=== PATIENT | male | born 2005 | race Two or more races ===

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

== ENCOUNTER 2024-03-24 21:10 | Emergency (ER) | payer MEDICAID, SELFPAY ==
--- NOTE | 2024-03-24 21:13 | XRR_ITS ---
PROCEDURE INFORMATION: Exam: XR Chest Exam date and time: 03/24/2024 9:25 PM Age: 18 years old Clinical indication: Pain; Chest pressure; Additional info: Cp TECHNIQUE: Imaging protocol: Radiologic exam of the chest. Views: 1 view. COMPARISON: CR XR chest 1V portable [id number] 10/06/2023 7:35 PM FINDINGS: Lungs: Unremarkable. No consolidation. Pleural spaces: Unremarkable. No pleural effusion. No pneumothorax. Heart/Mediastinum: Unremarkable. No cardiomegaly. Bones/joints: Unremarkable. XR/XR chest 1V portable [id number] IMPRESSION: No acute findings.
--- NOTE | 2024-03-24 21:13 | ECG_ITS ---
[facility] Test Date: 2024-03-24 Pat Name: Loco Martinez Department: Room: Gender: Male Center Rep: : 2005 Requested By: Roxie Nair Order Number: [id number] Son MD: Geronimo Parisi M.D. Measurements Intervals [place] Rate: 94 P: 27 GA: 122 QRS: 66 QRSD: 86 T: -44 QT: 313 QTc: 391 Interpretive Statements SINUS RHYTHM MODERATE T-WAVE ABNORMALITY, CONSIDER INFERIOR ISCHEMIA [-0.1+ mV T-WAVE IN II/aVF] Compared to ECG 10/06/2023 16:59:45 Possible ischemia now present T-wave abnormality still present Electronically Signed On 03-28-2024 13:20:55 CDT by Geronimo Parisi M.D. [id number]
[2024-03-24 21:20] VITALS: BP 123/75; PULSE 95; RESP 16; TEMP 36.6; O2SAT 96
[2024-03-24 22:35] VITALS: BP 130/100; PULSE 87; RESP 20; O2SAT 94
--- NOTE | 2024-03-24 22:42 | ED_ITS ---
HPI - SOB/Dyspnea 2 General: Chief Complaint: Shortness of Breath/Dyspnea Stated Complaint: sharp pain through chest when breating in Time Seen by Provider: 03/24/24 22:29 History of Present Illness: HPI Narrative: Patient presents to the ER with complaints of pain in his chest that shoots from his back to his front when he takes a big deep breath or coughs. Patient states this started 2 days ago. Patient also notices this pain when he twists in certain areas of his back or moves in certain directions. Patient says he is that was diagnosed with a URI about a month ago and is just not got a whole lot better. Patient does state that he vapes a lot and has a chronic cough because of this. Review of Systems 2 General: Reports: 10 or more systems reviewed and unremarkable except in HPI and below Physical Exam 2 Const: COMMON NORMALS: no acute distress, average body habitus, patient oriented x3, no limitations, healthy appearing, alert and well nourished HENMT: COMMON NORMALS: normocephalic, atraumatic, hearing grossly normal bilaterally, external ears normal, Normal external nose present and moist oral mucous membranes HEAD & SCALP: normocephalic and atraumatic NOSE: Normal external nose present EXTERNAL EAR: Yes external ears normal Neck/C-Spine: COMMON NORMALS: full ROM, no lymphadenopathy, supple, no meningeal signs, no JVD and Thyroid normal THYROID: Thyroid normal Chest: COMMONS NORMALS: normal inspection of the chest and normal palpation of entire chest wall Resp: COMMON NORMALS: normal respiratory effort, No retractions, No use of accessory muscles and clear to auscultation bilaterally AUSCULTATION: clear to auscultation bilaterally Cardio: COMMON NORMALS: no JVD, regular rate, regular rhythm, S1 normal heart sound present, S2 normal heart sound present, No gallops present (Cardio), No clicks present (Cardio), No murmurs present (Cardio) and No rub (Cardio) R ATE: regular rate RHYTHM: regular rhythm HEART SOUNDS: S1 normal heart sound present and S2 normal heart sound present GI: COMMON NORMALS: Normal to inspection, nondistended, normoactive bowel sounds present, Soft to palpation, non-tender, No hepatosplenomegaly present and no masses PALPATION: Yes Soft to palpation and Yes No hepatosplenomegaly present Neuro: COMMON NORMALS: patient oriented x3 SENSORIUM/ORIENTATION: Yes alert MENINGEAL SIGNS: Yes no meningeal signs Course 2 Vital Signs: Vital signs: Vital Signs Temperature 97.9 F 03/24/24 21:20 Pulse Rate 87 03/24/24 22:35 Respiratory Rate 20 H 03/24/24 22:35 Blood Pressure 130/100 03/24/24 22:35 Pulse Oximetry 94 03/24/24 22:35 Oxygen Delivery Me thod Room Air 03/24/24 22:35 MDM - SOB/Dyspnea Medical Decision Making Chest x-ray showed no acute findings, CBC CMP CRP were normal, EKG showed no acute changes. Since patient is a frequent cough or from back pain and disc had a URI it is thought that his chest pain when he takes a big deep breath is more pleuritic in nature. Therefore we will put him on prednisone and Tessalon Perles and refer him back to his PCP. Differential Diagnosis Unlikely acute exacerbation of chronic obstructive airways disease, congestive heart failure, community acquired pneumonia, asthma with exacerbation or pulmonary embolism Medical Records I reviewed the patient's medical records. Lab Data I reviewed the patient's lab results. 03/24/24 22:26 03/24/24 22:26 Labs/Radiology: Radiology Impressions Chest X-Ray 03/24/24 21:13 IMPRESSION: No acute findings. Laboratory Results WBC 8.71 10^3/uL (4.5-13.0) 03/24/24 22:26 RBC 5.77 10^6/uL (3.85-5.65) H 03/24/24 22:26 Hgb 16.40 g/dL (13.2-15.6) H 03/24/24 22:26 Hct 47.7 % (37-53) 03/24/24 22:26 MCV 82.7 fl (82-101) 03/24/24 22:26 MCH 28.4 pg (27-33) 03/24/24 22: MCHC 34.4 g/dL (30-55) 03/24/24 22:26 RDW 13.1 % (12.1-15.1) 03/24/24 22:26 Plt Count 260 10^3/cmm (157-399) 03/24/24 22:26 MPV 9.7 fL (7.4-10.4) 03/24/24 22:26 Neut % (Auto) 68.0 % 03/24/24 22: Lymph % (Auto) 21.0 % 03/24/24 22:26 Citrus % (Auto) 6.7 % 03/24/24 22: Eos % (Auto) 2.4 % 03/24/24 22: Baso % (Auto) 0.8 % 03/24/24 22: Neut # (Auto) 5.92 10^3/uL (1.8-8.0) 03/24/24 22: Lymph # (Auto) 1.8 10^3/uL (1.5-6.5) 03/24/24 22: Citrus # (Auto) 0.6 10^3/uL (0.2-0.9) 03/24/24 22: Eos # (Auto) 0.2 10^3/uL (0.0-0.8) 03/24/24 22: Baso # (Auto) 0.1 10^3/uL (0.0-0.1) 03/24/24 22:26 Nucleated RBC % (auto) 0 % 03/24/24 22: Nucleated RBCs # 0.0 /100WBC 03/24/24 22:26 Sodium 139 mmol/L (136-145) 03/24/24 22:26 Chloride 100 mmol/L (98-107) 03/24/24 22: Carbon Dioxide 26 mmol/L (22-29) 03/24/24 22:26 BUN 14 mg/dL (6-20) 03/24/24 22:26 Creatinine 0.7 mg/dL (0.7-1.2) 03/24/24 22:26 Glucose 88 mg/dL (65-115) 03/24/24 22:26 Calculated Osmolality 288 mOsm/kg (285-295) 03/24/24 22:26 Calcium 9.1 mg/dL (8.5-10.5) 03/24/24 22: Total Bilirubin 0.3 mg/dL (0.15-1.2) 03/24/24 22:26 Alkaline Phosphatase 118 U/L (40-130) 03/24/24 22:26 Total Protein 7.5 g/dL (6.6-8.7) 03/24/24 22:26 Albumin 4.5 g/dL (3.5-5.2) 03/24/24 22:26 Globulin 3.0 g/dL (1.3-4.6) 03/24/24 22:26 All radiology interpretation(s) finalized by discharge Discharge Plan Discharge Patient Disposition: Home Clinical Impression: Pleuritic chest pain Cough Qualifiers: Cough type: unspecified Qualified Code(s): R05.9 - Cough, unspecified Condition: Stable Prescriptions: New benzonatate 100 mg capsule 100 mg PO TID PRN (Reason: cough) Qty: 30 0RF prednisone 50 mg tablet 50 mg PO DAILY Qty: 5 0RF No Action Naprosyn 500 mg tablet 500 mg PO BID PRN (Reason: pain) Qty: 20 0RF Discharge Orders: Discharge ED (Routine); Ordered 03/24/24 Ordered By: Reed Johansen Patient Instructions: Pleurisy (ED) Activity Restrictions/Additional Instructions: Your chest x-ray, EKG and blood work all was unremarkable except for mildly elevated liver enzymes. Since your chest pain is worse with breathing and coughing it is thought to be more pleuritic in nature. This is due to an irritation of the lungs. You have been prescribed a cough medicine and a steroid that should help with this. Please follow-up with your family practitioner in the next 7 days for further evaluation and treatment and recheck of your liver enzymes. Coding Level of Care Code ED Head Operator Sulfide for Kennedy Rivero
[2024-03-24 22:46] LABS: Basophils # 0.1 10^3/uL (0.0-0.1); Basophils % 0.8 %; Eosinophils # 0.2 10^3/uL (0.0-0.8); Eosinophils % 2.4 %; Hematocrit 47.7 % (37-53); Lymphocytes # 1.8 10^3/uL (1.5-6.5); Mean Corpuscular HGB Conc 34.4 g/dL (30-55); Mean Corpuscular Hemoglobin 28.4 pg (27-33); Mean Corpuscular Volume 82.7 fl (82-101); Mean Platelet Volume 9.7 fL (7.4-10.4); Monocytes # 0.6 10^3/uL (0.2-0.9); Monocytes % 6.7 %; Neutrophils # 5.92 10^3/uL (1.8-8.0); Nucleated Red Blood Cells % 0 %; Platelet Count 260 10^3/cmm (157-399); Red Blood Count 5.77 10^6/uL (3.85-5.65); Red Cell Distribution Width 13.1 % (12.1-15.1); White Blood Count 8.71 10^3/uL (4.5-13.0)
[2024-03-24 23:21] LABS: Albumin Level 4.5 g/dL (3.5-5.2); Alkaline Phosphatase 118 U/L (40-130); Blood Urea Nitrogen 14 mg/dL (6-20); Calcium 9.1 mg/dL (8.5-10.5); Carbon Dioxide 26 mmol/L (22-29); Chloride 100 mmol/L (98-107); Creatinine Clr Calc Pharmacy 161.5974; Glomerular Filtration Rate 145.3 mL/min (90-130); Glucose 88 mg/dL (65-115); Osmolality Calculated 288 mOsm/kg (285-295); Sodium 139 mmol/L (136-145); Total Bilirubin 0.3 mg/dL (0.15-1.2); Total Protein 7.5 g/dL (6.6-8.7)
[2024-03-24 23:25] LABS: Alanine Aminotransferase 115 U/L (0-41); Anion Gap 17.4 (5-19); Aspartate Amino Transferase 57 U/L (0-40); Potassium 4.4 mmol/L (3.5-5.1)
[2024-03-24] MEDS: predniSONE 20 mg Tablet 40 MG PO (23:40)
[2024-03-24] MEDS: benzonatate 100 mg Capsule PO (23:40)
[2024-03-24 23:51] VITALS: PULSE 89; RESP 18; O2SAT 96
== END 2024-03-24 23:45 | disposition home or self-care (01) ==
PROVIDERS: Emergency Provider Emergency Medicine
DX: R09.1 Pleurisy (principal); R05.9 Cough, unspecified
CPT/HCPCS: 71045; 80053; 85025; 93005; 99285; J7512

== ENCOUNTER 2024-04-15 17:47 | Emergency (ER) | payer BC, MEDICAID, SELFPAY ==
[2024-04-15 17:48] VITALS: BP 145/92; PULSE 79; RESP 14; TEMP 36.9; O2SAT 99
--- NOTE | 2024-04-15 17:59 | W.ED.MALEGU ---
HPI - Male Genitourinary General: Chief complaint: Urogenital-Male Stated complaint: STD Time Seen by Provider: 04/15/24 17:50 Source: patient Mode of arrival: ambulatory Limitations: no limitations History of Present Illness: 18-year-old male states that there is a girl spreading rumors about him giving her an STD. He states that she said he gave her chlamydia. He states he has not had any sexual intercourse with her he is not have any symptoms and he just wants to have an STD check to prove that he does not have it. Denies any testicle pain or dysuria Associated symptoms: Deny dysuria, nausea or vomiting Review of Systems Const: Denies: fever(s), chills, body aches or change in appetite ENMT: Denies: throat pain or dental pain Card: Denies: chest pain Resp: Denies: dyspnea GI: Denies: abdominal pain, nausea, vomiting or diarrhea : Denies: dysuria Musc: Denies: neck pain or back pain Physical Exam Const: COMMON NORMALS: no acute distress, patient oriented x3 and healthy appearing HENMT: COMMON NORMALS: normocephalic and atraumatic HEAD & SCALP: normocephalic and atraumatic Eye: COMMON NORMALS: conjunctivae normal CONJUNCTIVA: Yes conjunctivae normal Neck/C-Spine: COMMON NORMALS: full ROM and supple Chest: COMMONS NORMALS: normal inspection of the chest Resp: COMMON NORMALS: normal respiratory effort Extremity: COMMON NORMALS: normal to inspection and full ROM Neuro: COMMON NORMALS: patient oriented x3, moves all extremities and no focal motor deficits Psych: COMMON NORMALS: mental status grossly normal, Normal thought process present and cooperative THOUGHT PROCESS: Normal thought process present Skin: COMMON NORMALS: no rashes or lesions noted and no wounds GENERAL SKIN EXAM: no rashes or lesions noted Course Vital Signs: Vital signs: Vital Signs Temperature 98.4 F 04/15/24 17:48 Pulse Rate 79 04/15/24 17:48 Respiratory Rate 14 04/15/24 17:48 Blood Pressure 145/92 04/15/24 17:48 Pulse Oximetry 99 04/15/24 17:48 Oxygen Delivery Me thod Room Air 04/15/24 17:48 MDM - Male Medical Decision Making Patient presents for STD check he has no symptoms we will get a urine sample and run for gonorrhea chlamydia he stable for discharge Medical Records I reviewed the patient's medical records. No radiology studies performed this visit Discharge Plan Discharge Patient Disposition: Home Clinical Impression: Screening for STDs (sexually transmitted diseases) Condition: Stable Prescriptions: No Action benzonatate 100 mg capsule 100 mg PO TID PRN (Reason: cough) Qty: 30 0RF prednisone 50 mg tablet 50 mg PO DAILY Qty: 5 0RF Naprosyn 500 mg tablet 500 mg PO BID PRN (Reason: pain) Qty: 20 0RF Discharge Orders: Discharge ED (Routine); Ordered 04/15/24 Ordered By: Roxie Nair Discharge Diet: Advance as tolerated Discharge Activity: Resume usual activity Patient Instructions: Sexually Transmitted Diseases (ED), Safe Sex Practices (ED) Coding Level of Care Code ED Public Works Laborer for Kennedy Rivero
[2024-04-17 10:40] LABS: Chlamydia Trachomatis RNA TMA DETECTED (NOT DETECTED); Neisseria Gonorrhoeae RNA, TMA NOT DETECTED (NOT DETECTED)
== END 2024-04-15 18:10 | disposition home or self-care (01) ==
PROVIDERS: Emergency Provider Emergency Medicine
DX: Z11.3 Encounter for screening for infections with a predominantly sexual mode of transmission (principal); Z79.899 Other long term (current) drug therapy
CPT/HCPCS: 87491; 87591; 99283

== ENCOUNTER 2024-11-14 13:04 | Emergency (ER) | payer BC, MEDICAID, SELFPAY ==
[2024-11-14 13:23] VITALS: BP 122/60; PULSE 86; RESP 14; TEMP 36.8; O2SAT 98
--- NOTE | 2024-11-14 14:23 | ED_ITS ---
HPI - Back Pain/Injury 2 General: Chief Complaint: Back Pain/Injury Stated Complaint: backpain Time Seen by Provider: 11/14/24 14:10 Source: patient Mode of arrival: ambulatory Limitations: no limitations History of Present Illness: Patient is a 19-year-old male presents to ED today with a complaint of chronic back pain. He states he injured his back back in July and states he has pad pain since. He is occasionally taken Tylenol and Ibuprofen as well as topical analgesics without much relief. He has also seen a chiropractor. He does not have a primary care provider. His back pain does not seem to limit him in any way. He is not complaining of chest pain, shortness of breath, difficulty breathing. No radicular discomforts. No issues with urinating or defecating. He arrives in no acute distress with stable vital signs. He also has a separate complaint of cough and congestion. He is here with another female individual with identical symptoms who is also being seen. MD elicited complaint: back pain Pertinent past history: prior back pain Onset (ago): month(s) Timing: constant Severity: moderate Location: thoracic spine and left upper back Radiation: none Exacerbating factors: movement Relieving factors: none Associated symptoms: Reports no associated symptoms; Deny abdominal pain, chills, dysuria, fatigue or fever(s) Treatments prior to arrival: cold therapy, heat therapy, NSAIDS and acetaminophen Work related injury: No Related Data Previous Rx's ?Medication ?Instructions ?Recorded benzonatate 100 mg capsule 100 mg PO TID PRN cough #30 caps 03/24/24 cyclobenzaprine 10 mg tablet 10 mg PO TID #14 tabs 05/01 naproxen 500 mg tablet (Naprosyn) 500 mg PO BID PRN pa in #20 tabs 11/14/24 Allergies Allergy/AdvReac Type Severity Reaction Status Date / Time No Known Allergies Allergy Verified 11/14/24 13:27 Review of Systems 2 Const: Denies: fever(s), chills, body aches, fatigue or malaise ENMT: Reports: throat pain and nasal congestion Card: Denies: chest pain Resp: Reports: non-productive cough; Denies: dyspnea GI: Denies: abdominal pain : Denies: flank pain or dysuria Musc: Reports: back pain; Denies: neck pain, extremity pain, extremity swelling, joint pain, joint swelling or joint redness Skin/Breast: Denies: rash Neuro: Denies: headache(s), numbness in extremities, weakness in extremities, sensory changes or dizziness Physical Exam 2 Const: COMMON NORMALS: no acute distress, average body habitus, patient oriented x3, no limitations, healthy appearing, alert and well nourished G ENERAL APPEARANCE: cooperative ORIENTATION/CONSCIOUSNESS: Yes awake, Yes oriented to person, Yes oriented to place and Yes oriented to time HENMT: COMMON NORMALS: normocephalic and atraumatic HEAD & SCALP: normal to inspection, normocephalic and atraumatic FACE & SINUS: normal facial exam THROAT: posterior oropharynx normal and tonsils normal Neck/C-Spine: COMMON NORMALS: full ROM GENERAL: Yes normal visual inspection CERVICAL SPINE: No pain with cervical ROM and No Cervical spine tenderness Chest: COMMONS NORMALS: normal inspection of the chest and normal palpation of entire chest wall Resp: COMMON NORMALS: normal respiratory effort and clear to auscultation bilaterally AUSCULTATION: clear to auscultation bilaterally Cardio: COMMON NORMALS: regular rate and regular rhythm RATE: regular rate RHYTHM: regular rhythm GI: COMMON NORMALS: Normal to inspection, nondistended, normoactive bowel sounds present, Soft to palpation and no masses PALPATION: Yes Soft to palpation : COMMON NORMALS: Yes no CVA tenderness BLADDER/KIDNEY EXAM: Yes no CVA tenderness Back/Pelvis: COMMON NORMALS: no CVA tenderness, thoracic and lumbar spine normal to inspection, no thoracic nor lumbar tenderness, thoraco-lumbar ROM normal and straight leg raise negative bilaterally THORACIC SPINE/UPPER BACK: Yes paraspinal muscle tenderness Thoracic paraspinal muscle tenderness: right BACK IMAGE (MALE): 1. TTP x 4-5 months Extremity: COMMON NORMALS: normal to inspection GENERAL: Yes normal exam except as noted Neuro: COMMON NORMALS: patient oriented x3, moves all extremities, no focal motor deficits, no sensory deficits noted and gait normal S ENSORIUM/ORIENTATION: Yes alert, Yes oriented to person, Yes oriented to place and Yes oriented to time Skin: COMMON NORMALS: no rashes or lesions noted GENERAL SKIN EXAM: no rashes or lesions noted Course 2 Vital Signs: Vital signs: Vital Signs Temperature 98.3 F 11/14/24 13:23 Pulse Rate 86 11/14/24 13:23 Respiratory Rate 14 11/14/24 13:23 Blood Pressure 122/60 11/14/24 13:23 Pulse Oximetry 98 11/14/24 13:23 Oxygen Delivery Me thod Room Air 11/14/24 13:23 MDM - Back Pain/Injury Medical Decision Making I do not suspect any life-threatening or emergent etiology for his back pain that has been present since July. Will have case management set him up with a primary care provider for further evaluation of this. He would like to try some muscle relaxers. He has mild cough and congestion. He clinically appears no acute distress. His vital signs are stable. He is here with a female provider who is also being seen for identical symptoms. She has COVID/flu/RSV swab pending. We spoke about how they most likely have identical viral URIs we discussed conservative therapies for this. Medical Records I reviewed the patient's medical records. No radiology studies performed this visit Discharge Plan Discharge Patient Disposition: Home Clinical Impression: Viral upper respiratory infection Chronic back pain Qualifiers: Back pain location: thoracic back pain Back pain laterality: right Qualified Code(s): M54.6 - Pain in thoracic spine Condition: Stable Prescriptions: New cyclobenzaprine 10 mg tablet 10 mg PO TID Qty: 14 0RF Continued naproxen [Naprosyn] 500 mg tablet 500 mg PO BID PRN (Reason: pain) Qty: 20 0RF Discontinued prednisone 50 mg tablet 50 mg PO DAILY Qty: 5 0RF No Action benzonatate 100 mg capsule 100 mg PO TID PRN (Reason: cough) Qty: 30 0RF Discharge Orders: Discharge ED (Routine); Ordered 11/14/24 Ordered By: Hue Simon Activity Restrictions/Additional Instructions: As we discussed, we have case management set you up with a primary care provider for further evaluation of your chronic back pain. Print Language: Botswanan Coding Level of Care Code ED Operating Room Nurse for Kennedy Rivero
[2024-11-14 14:36] VITALS: PULSE 80; O2SAT 97
== END 2024-11-14 14:37 | disposition home or self-care (01) ==
PROVIDERS: Emergency Provider Physician Assistant
DX: J06.9 Acute upper respiratory infection, unspecified (principal); M54.6 Pain in thoracic spine
CPT/HCPCS: 99283

== ENCOUNTER 2025-02-22 00:30 | Emergency (ER) | payer SELFPAY ==
[2025-02-22 00:34] VITALS: BP 156/90; PULSE 72; RESP 18; TEMP 36.8; O2SAT 98; BMI 29.0
[2025-02-22] MEDS: clindamycin 150 mg Capsule 300 MG PO (01:39)
[2025-02-22] MEDS: oxyCODONE-APAP 5-325 mg Tablet 1 TAB PO (01:40)
[2025-02-22] MEDS: ketorolac 60 mg/2 mL INJ IM (01:40)
[2025-02-22] MEDS: dexamethasone 10 mg/mL INJ 8 MG PO (01:40)
--- NOTE | 2025-02-22 02:10 | ED_ITS ---
HPI - Dental/Oral General: Chief complaint: Dental/Oral Stated complaint: left dental pain Time Seen by Provider: 02/22/25 01:06 History of Present Illness: 19-year-old male patient complaining of left upper back tooth and gum pain for the past 24 hours or so. No vomiting. No fever. No drainage in his mouth. Pain radiates down into his neck, and into his head causing a headache. He has not had a problem with this tooth before. Related Data Previous Rx's ?Medication ?Instructions ?Recorded clindamycin HCl 300 mg capsule 300 mg PO Q6H 10 days # 40 caps 02/22/25 (Cleocin HCl) ketorolac 10 mg tablet 10 mg PO TID PRN pain #10 ta bs 02/22/25 Allergies Allergy/AdvReac Type Severity Reaction Status Date / Time No Known Allergies Allergy Verified 01/15/25 14:27 [facility] ED PFSH: Social History Smoking and tobacco/nicotine status: current every day tobacco/nicotine user Physical Exam Const: COMMON NORMALS: no acute distress GENERAL APPEARANCE: cooperative; not ill appearing and not frail appearing HENMT: COMMON NORMALS: normocephalic, atraumatic and Normal external nose present HEAD & SCALP: normocephalic and atraumatic FACE & SINUS: normal facial exam and face symmetric NOSE: Normal external nose present TEETH & GINGIVA: Yes abnormal tooth and associated gingiva (Left upper molar gum swelling, small abscess) Eye: COMMON NORMALS: Equal, round and reactive pupils present and EOMs intact bilaterally PUPIL: Yes Equal, round and reactive pupils present Neck/C-Spine: GENERAL: Yes trachea midline Chest: CHEST: Yes Symmetrical chest wall rise Resp: COMMON NORMALS: normal respiratory effort, No retractions and No use of accessory muscles Neuro: BERTHA COMA SCALE: document GCS findings Orchard coma scale eye opening: Spontaneous Orchard coma scale verbal response: Orientated Bertha coma scale motor response: Obey commands Bertha coma scale total score: 15 SENSORY EXAM: Yes extremities (intact) Psych: COMMON NORMALS: speech normal SPEECH: Yes normal speech Course Vital Signs: Vital signs: Vital Signs Temperature 98.2 F 02/22/25 00:34 Pulse Rate 72 02/22/25 00:34 Respiratory Rate 18 02/22/25 00:34 Blood Pressure 156/90 02/22/25 00:34 Pulse Oximetry 98 02/22/25 00:34 Oxygen Delivery Me thod Room Air 02/22/25 00:34 MDM - Dental/Oral Medical Decision Making Antibiotic coverage. Ketorolac IM, 1 Percocet, dexamethasone for swelling. He does have some lymphadenopathy on exam. Continue clindamycin. Ketorolac for pain. No radiology studies performed this visit Discharge Plan Discharge Patient Disposition: Home Clinical Impression: Dental abscess Condition: Stable Prescriptions: New clindamycin HCl [Cleocin HCl] 300 mg capsule 300 mg PO Q6H 10 Days Qty: 40 0RF ketorolac 10 mg tablet 10 mg PO TID PRN (Reason: pain) Qty: 10 0RF Discharge Orders: Discharge ED (Routine); Ordered 02/22/25 Ordered By: James Riley Patient Instructions: Dental Abscess (ED), Opioid Safety, Pain Management Activity Restrictions/Additional Instructions: Follow-up with a dentist. Print Language: Italian Coding Level of Care Code ED Jet Aircraft Servicer for Kennedy Rivero
== END 2025-02-22 01:41 | disposition home or self-care (01) ==
PROVIDERS: Emergency Provider Emergency Medicine
DX: K04.7 Periapical abscess without sinus (principal); F17.200 Nicotine dependence, unspecified, uncomplicated
CPT/HCPCS: 96372; 99284; J1100; J1885; J9999

== ENCOUNTER 2025-04-29 20:49 | Emergency (ER) | payer SELFPAY ==
[2025-04-29 20:54] VITALS: BP 137/72; PULSE 98; RESP 17; TEMP 36.8; O2SAT 97; BMI 28.7
--- OUTSIDE RECORDS SUMMARY | 2025-04-29 20:55 | XMS_ITS | Clinical Summary ---
Author Organization [facility] Address [address] [place] [address] Care Team Providers Care Awning Hanger Supervisor Name Role Phone Patient, None Per Primary Care Provider Unavaila ble Source Comments This disclosure is being made pursuant to the [employer] program and maynot contain all information available regarding this patient.[facility] Allergies No known active allergies Medications HYDROcodone-andrae taminophen (NORCO) 5-325 MG per tablet Take 1 (one) tablet to 2 (two) tablets by mouth every 6 (six) hours as needed for Pain. 30 tablet 02/16/2023 Active Family History Medical History Relation Name Comments Heart disease Mother Relation Name Status Comments Mother Social History Tobacco Use Types Packs/Day Years Used Date Smoking Tobacco: Never Smokeless Tobacco: Never Tobacco Cessation:Counseling Given: Not Answered Alcohol Use Standard Drinks/Week Comments Never 0 (1 standard drink = 0.6 oz pur e alcohol) PHQ-2 Answer Date Recorded PHQ-2 Total Score 0 03/06/2023 Sex and Gender Information Value Date Recorded Sex Assigned at Not on file Legal Sex Male 12:20 PM CDT Gender Identity Not on file Sexual Orientation Not on file Last Filed Vital Signs Vital Sign Reading Time Taken Comments Blood Pressure 123/76 11/20/2024 9:33 PM FRESH FOODS CAKE DECORATOR Pulse 90 11/20/2024 9:33 PM FRESH FO[employer]S CAKE DECORATOR Temperature 37.6 C (99.6 F) 11/20/2024 9:33 PM FRESH FO[employer] CAKE DECORATOR Respiratory Rate 18 11/20/2024 9:33 PM FRESH FO[employer] CAKE DECORATOR Oxygen Saturation 98% 11/20/2024 9:33 PM FRESH FO[employer]S CAKE DECORATOR Inhaled Oxygen Concentration - - Weight 83.9 kg (185 lb) 11/20/2024 9:33 PM FRESH FO[employer]S CAKE DECORATOR Height 167.6 cm (5' 6 ) 11/20/2024 9:33 PM FRESH FOODS CAKE DECORATOR Body Mass Index 29.86 11/20/2024 9:33 PM FRESH FO[employer]S CAKE DECORATOR Plan of Treatment Health Maintenance Due Date Last Done Comments Lab-Cholesterol Screening 2004 Lab-Hepatitis C Screening 2004 HPV Vaccine (9-26yo & Shared Decision 27-45yo) (1 - Male 3-dose series) 2019 Meningococcal B Vaccine (1 o f 2 - Standard) 2020 Annual Wellness Visit 2022 Hepatitis B Vaccine (1 of 3 - 19+ 3-dose series) 2023 Tetanus/Pertussis Vaccine Teen/Adult (1 - Tdap) 2023 COVID-19 Vaccine (2 - 2023-2 5 season) 2024 05/26/2021 Influenza Vaccine (#1) 2025 4, 07/29/2013, 08/01/2012 Zoster (Shingles) Vaccine 50 + (1 of 2) 2054 RSV Adult (1 - 1-dose 75+ series) 2079 HIB Vaccine Aged Out No longer eligi ble based on patient's age to complete this topic Hepatitis A Vaccine Aged Out No longe r eligible based on patient's age to complete this topic IPV Vaccine Aged Out No longer eligi ble based on patient's age to complete this topic Meningococcal Conjugate Vaccine Aged Out No longer eligible b ased on patient's age to complete this topic Pneumococcal Vaccines 0-49 yo Aged Out No longer eligible based on patient's age to complete this topic RSV < 20 Months Aged Out No longer el igible based on patient's age to complete this topic Insurance [facility] [facility]ICA[employer] [id number] Care Teams Awning Hanger Supervisor Relationship Specialty Start Date End Date Patient, None Per PCP - General 03/23/17
--- OUTSIDE RECORDS SUMMARY | 2025-04-29 20:55 | XMS_ITS | Clinical Summary ---
Author Organization [facility] Address [address] [place] [address] Care Team Providers Care Applications Support Lead Name Role Phone Unavailable Primary Care Provider Unavailabl e Source Comments PLEASE NOTE, if this patient is a minor, it may be UNLAWFUL to discuss sensitive information that is contained in these records (such as FAMILY PLANNING, MENTAL HEALTH or SUBSTANCE ABUSE) with the minor patient's parent or other person without the patient's specific authorization.[facility] Medications azithromycin (ZITHROMAX) 500 mg tablet Take 2 Tablets by mouth once daily 2 Tablet 12/22/2024 Active Social History Tobacco Use Types Packs/Day Years Used Date Smoking Tobacco: Never Assessed Social Connections Answer Date Recorded Connectedness 0 06/22/2024 Financial Resource Strain Answer Date R ecorded Financial Resource Strain 0 2022 Stress Answer Date Recorded Stress 0 05/28/2023 Physical Activity Answer Date Recorded Physical Activity 0 05/28/2023 Food Insecurity Answer Date Recorded Food 0 07/03/2024 Transportation Needs Answer Date Record ed Transportation 0 05/28/2023 Housing Stability Answer Date Recorded Housing 0 05/28/2023 Safety and Environment Answer Date Yoel rded Safety 0 05/28/2023 Utilities Answer Date Recorded Utilities 0 05/28/2023 Employment Answer Date Recorded Stress 0 06/22/2024 Sex and Gender Information Value Date Recorded Sex Assigned at Not on file Legal Sex Male 12:05 PM PDT Gender Identity Not on file Sexual Orientation Not on file Plan of Treatment Health Maintenance Due Date Last Done Comments Anxiety Screening 2004 Hepatitis C Screening 2004 STI Counseling 2004 Tobacco Screening 2004 Imm-MMR (1 of 1 - Standard series) 2005 Imm-Varicella (1 of 2 - 13+ 2-dose series) 2017 HIV Screening 2019 Hypertension Screening (#1) 2022 Imm-Hepatitis B (1 of 3 - 19 + 3-dose series) 2023 [id number] (2 - 2023- season) 2024 021 Alcohol and Drug Screen 10/08/2024 Depression Annual Screen 10/08/2024 Imm-Influenza (#1) 2025 08/05/2014, 1 , 08/01/2012 Imm-DTaP/Tdap/Td (2 - Td or Tdap) 06/22/2026 016 Imm-HPV Completed 02/15/2017, 06/22/2016 Imm-Hepatitis A Completed 07/26/2017, 06/22/2016
--- OUTSIDE RECORDS SUMMARY | 2025-04-29 20:55 | XMS_ITS | Encounter Summary ---
Author Organization [facility] Address [address] [place] [address] Care Team Providers Care Hris Administrator Name Role Phone Unavailable Primary Care Provider Unavailabl e Reason for Visit * Reason Comments Office Visit: Converted Data Conversion Encounter Details Date Type Department Care Team (Late st Contact Info) Description 07/31/2023 Dental Interim Note [facility] Department [address] [place] [address] Default, [facility] [place] Social History Tobacco Use Types Packs/Day Years Used Date Smoking Tobacco: Never Assessed Social Connections Answer Date Recorded Social Connections and Isolation 0 05/28/2023 Financial Resource Strain Answer Date R ecorded Financial Resource Strain 0 2022 Stress Answer Date Recorded Stress 0 05/28/2023 Physical Activity Answer Date Recorded Physical Activity 0 05/28/2023 Food Insecurity Answer Date Recorded Food 0 05/28/2023 Transportation Needs Answer Date Record ed Transportation 0 05/28/2023 Housing Stability Answer Date Recorded Housing 0 05/28/2023 Safety and Environment Answer Date Yoel rded Safety 0 05/28/2023 Utilities Answer Date Recorded Utilities 0 05/28/2023 Employment Answer Date Recorded Employment 0 05/28/2023 Sex and Gender Information Value Date Recorded Sex Assigned at Not on file Legal Sex Male 12:05 PM PDT Gender Identity Not on file Sexual Orientation Not on file documented as of this encounter Plan of Treatment Scheduled Orders Name Type Priority Associated Diagnoses Order Schedule 4 DO 4 DO RESIN-BASED COMPOSITE - 2 SURFACES, POSTERIOR Dental Procedures Routine 1 Occurren stanley starting 07/20/2023 11 F 11 F RESIN-BASED COMPOSITE - 1 SURFACE, ANTERIOR Dental Procedures Routine 1 Occurrence s starting 07/20/2023 13 DO 13 DO RESIN-BASED COMPOSITE - 2 SURFACES, POSTERIOR Dental Procedures Routine 1 Occurren stanley starting 07/20/2023 20 DO 20 DO RESIN-BASED COMPOSITE - 2 SURFACES, POSTERIOR Dental Procedures Routine 1 Occurren stanley starting 07/20/2023 21 NUHA 21 NUHA RESIN-BASED COMPOSITE - 2 SURFACES, POSTERIOR Dental Procedures Routine 1 Occurren stanley starting 07/20/2023 27 F 27 F RESIN-BASED COMPOSITE - 1 SURFACE, ANTERIOR Dental Procedures Routine 1 Occurrence s starting 07/20/2023 28 NUHA 28 NUHA RESIN-BASED COMPOSITE - 2 SURFACES, POSTERIOR Dental Procedures Routine 1 Occurren stanley starting 07/20/2023 29 29 RESIN-BASED COMPOSITE - 3 SURFACES, POSTERIOR Dental Procedures Routine 1 Occurren stanley starting 07/20/2023 30 B 30 B RESIN-BASED COMPOSITE - 1 SURFACE, POSTERIOR Dental Procedures Routine 1 Occurrenc es starting 07/20/2023 PERIODIC ORAL EVALUATION - ESTABLISHED PATIENT Dental Procedures Routine 1 Occurren stanley starting 08/01/2023 PROPHYLAXIS - CHILD Dental Procedures Routine 1 Occurrences starting 08/01/2023 2 2 EXTRACTION, ERUPTED TOOTH OR EXPOSED ROOT (ELEVATION AND/OR FORCEPS REMOVAL) Dental Procedures Routine 1 Occurrences starting 08/01/2023 5 O 5 O RESIN-BASED COMPOSITE - 1 SURFACE, POSTERIOR Dental Procedures Routine 1 Occurrenc es starting 08/01/2023 6 FI 6 FI RESIN-BASED COMPOSITE - 2 SURFACES, ANTERIOR Dental Procedures Routine 1 Occurrenc es starting 08/01/2023 9 F 9 F RESIN-BASED COMPOSITE - 1 SURFACE, ANTERIOR Dental Procedures Routine 1 Occurrence s starting 08/01/2023 10 F 10 F RESIN-BASED COMPOSITE - 1 SURFACE, ANTERIOR Dental Procedures Routine 1 Occurrence s starting 08/01/2023 14 MODL 14 MODL RESIN-BASED COMPOSITE - 4 OR MORE SURFACES, POSTERIOR Dental Procedures Routine 1 Occurrences starting 08/01/2023 15 B 15 B RESIN-BASED COMPOSITE - 1 SURFACE, POSTERIOR Dental Procedures Routine 1 Occurrenc es starting 08/01/2023 18 MO 18 MO RESIN-BASED COMPOSITE - 2 SURFACES, POSTERIOR Dental Procedures Routine 1 Occurren stanley starting 08/01/2023 19 MODB 19 MODB RESIN-BASED COMPOSITE - 4 OR MORE SURFACES, POSTERIOR Dental Procedures Routine 1 Occurrences starting 08/01/2023 documented as of this encounter Visit Diagnoses Not on filedocumented in this encounter
--- NOTE | 2025-04-29 21:14 | ED_ITS ---
HPI - Dental/Oral General: Chief complaint: Dental/Oral Stated complaint: left upper tooth pain Time Seen by Provider: 04/29/25 20:56 History of Present Illness: 19-year-old man who says he just moved h ere and has minimal 4 to go with [facility] but his left upper most posterior molar has been broken off and has been causing problems for some time now. He says usually some antibiotics will help. He says he saving up his, try to go to the dentist Related Data Previous Rx's ?Medication ?Instructions ?Recorded ketorolac 10 mg tablet 10 mg PO TID PRN pain #10 ta bs 02/22/25 amoxicillin 875 mg-potassium 1 tab PO BID 10 days #20 tabs 04/29/25 clavulanate 125 mg tablet Allergies Allergy/AdvReac Type Severity Reaction Status Date / Time No Known Allergies Allergy Verified 04/29/25 20:58 Review of Systems Narrative: Constitutional symptoms: Negative except as documented in HPI. Skin symptoms: Negative except as documented in HPI. Eye symptoms: Negative except as documented in HPI. ENMT symptoms: Negative except as documented in HPI. Respiratory symptoms: Negative except as documented in HPI. Cardiovascular symptoms: Negative except as documented in HPI. Gastrointestinal symptoms: Negative except as documented in HPI. Genitourinary symptoms: Negative except as documented in HPI. Musculoskeletal symptoms: Negative except as documented in HPI. Neurologic symptoms: Negative except as documented in HPI. Psychiatric symptoms: Negative except as documented in HPI. Endocrine symptoms: Negative except as documented in HPI. PFS ED PFSH: Social History Smoking and tobacco/nicotine status: current every day tobacco/nicotine user Physical Exam Narrative: EXAM NARRATIVE: General: Alert, no acute distress. Skin: warm and dry Head: Normocephalic Neck: Trachea midline Eye: Extraocular movements are intact. Ears, nose, mouth and throat: Oral mucosa moist, left upper most posterior molar has a crack and some swelling and redness around it. Possible abscess Respiratory: Respirations are non-labored Musculoskeletal: Normal ROM Gastrointestinal: Abdomen does not appear distended Neurological: Alert and oriented, No focal neurological deficit observed. Psychiatric: Cooperative, appropriate mood & affect. Course Vital Signs: Vital signs: Vital Signs Temperature 98.3 F 04/29/25 20:54 Pulse Rate 98 04/29/25 20:54 Respiratory Rate 17 04/29/25 20:54 Blood Pressure 137/72 04/29/25 20:54 Pulse Oximetry 97 04/29/25 20:54 Oxygen Delivery Me thod Room Air 04/29/25 20:54 MDM - Dental/Oral Medical Decision Making Assessment and plan: Dental abscess ?First dose antibiotics by shot per patient request - Discharged home - Discussed plan with patient. Answered any questions. - Evaluation and treatment of this problem were appropriate in the emergency setting. No radiology studies performed this visit Discharge Plan Discharge Patient Disposition: Home Clinical Impression: Dental abscess Condition: Stable Prescriptions: New amoxicillin-pot clavulanate 875-125 mg tablet 1 tab PO BID 10 Days Qty: 20 0RF No Action ketorolac 10 mg tablet 10 mg PO TID PRN (Reason: pain) Qty: 10 0RF Discharge Orders: Discharge ED (Routine); Ordered 04/29/25 Ordered By: Zoë Torrez Discharge Diet: Usual diet Discharge Activity: Increase activity as tolerated Patient Instructions: Dental Abscess (ED), Opioid Safety, Pain Management, Patient Portal & Jonny Instructions Activity Restrictions/Additional Instructions: Please follow-up with a dentist as soon as possible Thank you for choosing [facility] for your healthcare needs today. You have been screened and evaluated and felt safe for discharge. Health conditions do change or evolve sometimes and as such it is important that you follow up with your Primary Doctor to be re checked, 3-5 days is a general good time frame for follow up. You are always welcome to return to the ED for re assessment if your symptoms are worsening or you have new concerns Print Language: Arabic Coding Level of Care Code ED Pig Farm Manager for Kennedy Rivero
[2025-04-29] MEDS: Clindamycin 150 MG/ML SDV 2mL 600 MG IM (21:32)
[2025-04-29] MEDS: HYDROcodone-acetaminophen 5-325 mg Tablet 1 TAB PO (21:46)
[2025-04-29 21:49] VITALS: PULSE 87; O2SAT 96
== END 2025-04-29 21:50 | disposition home or self-care (01) ==
PROVIDERS: Emergency Provider Emergency Medicine
DX: K04.7 Periapical abscess without sinus (principal); Z72.0 Tobacco use
CPT/HCPCS: 96372; 99284; J0736; J9999

== ENCOUNTER 2025-05-01 01:04 | Emergency (ER) | payer BC, SELFPAY ==
--- OUTSIDE RECORDS SUMMARY | 2025-05-01 01:10 | XMS_ITS | Clinical Summary ---
Author Organization [facility] Address [address] [place] [address] Care Team Providers Care Biomedical Engineering Internship Name Role Phone Unavailable Primary Care Provider [...] 3 - 19 + 3-dose series) 2023 [id number] (2 - 2023- season) 2024 021 Alcohol and Drug Screen 10/08/2024 Depression Annual Screen 10/08/2024 Imm-Influenza (#1) 2025 08/05/2014, 1 , 08/01/2012 Imm-DTaP/Tdap/Td (2 - Td or Tdap) 06/22/2026 016 Imm-HPV Completed 02/15/2017, 06/22/2016 Imm-Hepatitis A Completed 07/26/2017, 06/22/2016
--- OUTSIDE RECORDS SUMMARY | 2025-05-01 01:10 | XMS_ITS | Clinical Summary ---
Author Organization [employer] Address [address] [place] [address] Care Team Providers Care Brush Clearing Laborer Name Role Phone Patient, None Per Primary Care Provider Unavaila ble Source Comments This disclosure is being made pursuant to the [employer] program and maynot contain all information available regarding this patient.[employer] Allergies No known active allergies Medications HYDROcodone-andrae [...] Comments Blood Pressure 123/76 11/20/2024 9:33 PM ENVIRONMENTAL SERVICE AIDE Pulse 90 11/20/2024 9:33 PM ENVIRONMENTAL SERVICE AIDE Temperature 37.6 C (99.6 F) 11/20/2024 9:33 PM ENVIRONMENTAL SERVICE AIDE Respiratory Rate 18 11/20/2024 9:33 PM ENVIRONMENTAL SERVICE AIDE Oxygen Saturation 98% 11/20/2024 9:33 PM ENVIRONMENTAL SERVICE AIDE Inhaled Oxygen Concentration - - Weight 83.9 kg (185 lb) 11/20/2024 9:33 PM ENVIRONMENTAL SERVICE AIDE Height 167.6 cm (5' 6 ) 11/20/2024 9:33 PM ENVIRONMENTAL SERVICE AIDE Body Mass Index 29.86 11/20/2024 9:33 PM ENVIRONMENTAL SERVICE AIDE Plan of Treatment Health Maintenance Due Date [...] patient's age to complete this topic Insurance [facility] MEDICAID [address] Care Teams Brush Clearing Laborer Relationship Specialty Start Date End Date Patient, None Per PCP - General 03/23/17
--- OUTSIDE RECORDS SUMMARY | 2025-05-01 01:10 | XMS_ITS | Encounter Summary ---
Author Organization [facility] Address [address] [place] [address] Care Team Providers Care Elevator Adjuster Name Role Phone Unavailable Primary Care Provider Unavailabl e Reason for Visit * Reason Comments Office Visit: Converted Data Conversion Encounter Details Date Type Department Care Team (Late st Contact Info) Description 07/31/2023 Dental Interim Note [facility] Department [address] [place] [address] Default, [facility] Provider [place] Social History Tobacco [...]
[2025-05-01 01:16] VITALS: BP 150/93; PULSE 83; RESP 20; TEMP 36.6; O2SAT 97; BMI 29.0
--- NOTE | 2025-05-01 01:16 | ED_ITS ---
HPI - Dental/Oral 2 General: Chief complaint: Dental/Oral Stated complaint: R side tooth pain Time Seen by Provider: 05/01/25 01:06 Source: patient Mode of arrival: ambulatory Limitations: no limitations History of Present Illness: Patient is a 19-year-old male who presents to the ED today with a complaint of dental pain. He states he has had dental pain for several days. He was seen here a few days ago and placed on Augmentin but states he cannot fill this prescription because it was over $25 and he did not have the money. He cannot afford a dentist. He states he was seen at a walk-in clinic earlier today due to the pain and they stated they could not prescribe him pain medications thus prompting his visit to the emergency department now. Patient states he did not sleep last night secondary to the pain. MD Complaint: tooth pain Onset (ago): day(s) Duration: constant Severity: severe Context: history of dental caries and poor dental care Associated symptoms: Reports no associated symptoms; Denies ear or mastoid pain, fever(s) or odynophagia Treatment prior to arrival: topical analgesic Related Data Previous Rx's ?Medication ?Instructions ?Recorded ketorolac 10 mg tablet 10 mg PO TID PRN pain #10 ta bs 02/22/25 amoxicillin 875 mg-potassium 1 tab PO BID 10 days #20 tabs 05/01/25 clavulanate 125 mg tablet tramadol 50 mg tablet 50 mg PO Q6H PRN pain #8 tab s 05/01/25 Allergies Allergy/AdvReac Type Severity Reaction Status Date / Time No Known Allergies Allergy Verified 04/30/25 08:43 Review of Systems 2 Const: Denies: fever(s), chills, body aches, fatigue or malaise Eyes: Denies: change in vision, blurry vision, photophobia, floaters or seeing flashes ENMT: Reports: dental pain; Denies: throat pain, uvular edema, enlarged tonsils, odynophagia, hoarseness, mouth pain, swelling of lips/tongue, oral sores, bleeding gums, ear or mastoid pain, nasal discharge, nasal congestion or sinus pain Card: Denies: chest pain Resp: Denies: dyspnea GI: Denies: nausea or vomiting Musc: Denies: neck pain Skin/Breast: Denies: rash Neuro: Denies: headache(s) [facility] ED 2 PFSH: Social History Smoking and tobacco/nicotine status: unknown if used tobacco/nicotine Physical Exam 2 Const: COMMON NORMALS: no acute distress, average body habitus, no limitations, healthy appearing, alert and well nourished HENMT: FACE & SINUS: normal facial exam; no erythema, no edema and no fluctuance MOUTH: Normal oral and palatal mucosa present, lip normal, tongue normal and Normal salivary glands and ducts present TEETH & GINGIVA: Yes caries and Yes other (significant widespread dental decay; no fluctuant abscess) TEETH & GINGIVA IMAGES: 1. Site of pain. No drainable or fluctuant abscess. Significant widespread dental disease. THROAT: posterior oropharynx normal and tonsils normal; no uvular edema Neck/C-Spine: COMMON NORMALS: no lymphadenopathy GENERAL: No anterior neck swelling and No submandibular swelling Resp: COMMON NORMALS: normal respiratory effort and clear to auscultation bilaterally AUSCULTATION: clear to auscultation bilaterally Cardio: COMMON NORMALS: regular rate and regular rhythm RATE: regular rate RHYTHM: regular rhythm Neuro: SENSORIUM/ORIENTATION: Yes alert Course 2 Vital Signs: Vital signs: Vital Signs Temperature 97.8 F 05/01/25 01:16 Pulse Rate 83 05/01/25 01:16 Respiratory Rate 20 H 05/01/25 01:16 Blood Pressure 150/93 05/01/25 01:16 Pulse Oximetry 97 05/01/25 01:16 MDM - Dental/Oral Medical Decision Making No evidence of drainable abscess fluid collection or deep space infection. Vital signs are stable. Will attempt to send antibiotics to the [facility] pharmacy to see if they can help fill his prescription or run it through the prescription savings plan to make this more financially feasible for patient. Will prescribe a small amount of pain medications to hopefully allow him some sleep over the next few days. Return to ED precautions discussed. Differential Diagnosis Likely dental caries and toothache Medical Records I reviewed the patient's medical records. No radiology studies performed this visit Discharge Plan Discharge Patient Disposition: Home Clinical Impression: Pain, dental Condition: Stable Prescriptions: New tramadol 50 mg tablet 50 mg PO Q6H PRN (Reason: pain) Qty: 8 0RF Continued amoxicillin-pot clavulanate 875-125 mg tablet 1 tab PO BID 10 Days Qty: 20 0RF No Action ketorolac 10 mg tablet 10 mg PO TID PRN (Reason: pain) Qty: 10 0RF Discharge Orders: Discharge ED (Routine); Ordered 05/01/25 Ordered By: Hue Simon Patient Instructions: Toothache (ED), Mouth Care (ED), Opioid Safety, Pain Management, Patient Portal & Jonny Instructions, Dental Abscess Activity Restrictions/Additional Instructions: As we discussed, you need to follow-up with a dentist as soon as possible. You can attempt to fill your medications at the main campus pharmacy here at the hospital tomorrow. Print Language: Mauritian Coding Level of Care Code ED Pharmacy Informatics Specialist for Kennedy Rivero
[2025-05-01 01:59] VITALS: BP 127/76; PULSE 73; O2SAT 93
== END 2025-05-01 02:00 | disposition home or self-care (01) ==
PROVIDERS: Emergency Provider Physician Assistant
DX: K08.89 Other specified disorders of teeth and supporting structures (principal)
CPT/HCPCS: 96372; 99284; J1885

== ENCOUNTER 2025-05-28 12:02 | Emergency (ER) | payer MEDICAID, SELFPAY ==
--- OUTSIDE RECORDS SUMMARY | 2025-05-28 12:09 | XMS_ITS | Clinical Summary ---
Author Organization [facility] Address [address] [place] [address] Care Team Providers Care Daily Sales Audit Clerk Name Role Phone Patient, None Per Primary Care Provider Unavaila ble Source Comments This disclosure is being made pursuant to the [employer] program and maynot contain all information available regarding this patient.[facility] Allergies No known active allergies Medications HYDROcodone-andrae [...] Comments Blood Pressure 123/76 11/20/2024 9:33 PM STEP DOWN SPECIALIST Pulse 90 11/20/2024 9:33 PM STEP DOWN SPECIALIST Temperature 37.6 C (99.6 F) 11/20/2024 9:33 PM STEP DOWN SPECIALIST Respiratory Rate 18 11/20/2024 9:33 PM STEP DOWN SPECIALIST Oxygen Saturation 98% 11/20/2024 9:33 PM STEP DOWN SPECIALIST Inhaled Oxygen Concentration - - Weight 83.9 kg (185 lb) 11/20/2024 9:33 PM STEP DOWN SPECIALIST Height 167.6 cm (5' 6 ) 11/20/2024 9:33 PM STEP DOWN SPECIALIST Body Mass Index 29.86 11/20/2024 9:33 PM STEP DOWN SPECIALIST Plan of Treatment Health Maintenance Due Date [...] patient's age to complete this topic Insurance [facility] MEDICAID [address] Care Teams Daily Sales Audit Clerk Relationship Specialty Start Date End Date Patient, None Per PCP - General 03/23/17
--- OUTSIDE RECORDS SUMMARY | 2025-05-28 12:09 | XMS_ITS | Encounter Summary ---
Author Organization [facility] Address [address] [place] [id number] Care Team Providers Care Literature Teacher Name Role Phone Unavailable Primary Care Provider Unavailabl e Reason for Visit * Reason Comments Office Visit: Converted Data Conversion Encounter Details Date Type Department Care Team (Late st Contact Info) Description 07/31/2023 Dental Interim Note [facility] Department [address] [place] [address] Default, [facility] Provider [place] Social History Tobacco [...]
--- OUTSIDE RECORDS SUMMARY | 2025-05-28 12:09 | XMS_ITS | Clinical Summary ---
Author Organization [facility] Address [address] [place] [address] Phone Care Team Providers Care Primer Waterproofing Machine Adjuster Name Role Phone Unavailable Primary Care Provider Unavailabl e Allergies No known active allergies Medications HYDROcodone-andrae taminophen (NORCO) 5-325 mg tabletIndicatio ns:Dental infection Take 1 Tablet by mouth every 4 hours as needed for Pain, Moderate. Max Daily Amount: 6 Tablets 20 Tablet 05/10/2025 Active amoxicillin-cla vulanate (AUGMENTIN) 875-125 mg tablet Take 1 Tablet by mouth every 12 hours for 14 days. 28 Tablet 05/10/2025 05/24/20 25 Encounters Date Type Department Care Team Description 05/26/2025 External Device Data [facility] Provider, Abstract 05/13/2025 External Device Data [facility] Provider, Abstract 05/12/2025 External Device Data [facility] Provider, Abstract 05/12/2025 External Device Data [facility] Provider, Abstract 05/10/2025 5:46 AM CDT - 05/10/2025 7:15 AM CDT Emergency [facility] Emergency Department [address] [place] [address] [address] Rosenbaum MD Dental infection (Primary Dx) Discharge Disposition: Home or Self Care 05/10/2025 Travel from Last 3 Months Social History Tobacco Use Types Packs/Day Years Used Date Smoking Tobacco: Never Assessed Feeling Safe Answer Date Recorded Are you in a relationship wi th someone who hurts you emotionally and/or physically? No 05/10/2025 Sex and Gender Information Value Date Recorded Sex Assigned at Not on file Legal Sex Male 5:40 AM CDT Gender Identity Not on file Sexual Orientation Not on file Last Filed Vital Signs Vital Sign Reading Time Taken Comments Blood Pressure 132/95 05/10/2025 6:30 AM CDT Pulse 88 05/10/2025 7:01 AM CDT Temperature 36.4 C (97.5 F) 05/10/2025 5:42 AM CDT Respiratory Rate 20 05/10/2025 5:42 AM CDT Oxygen Saturation 98% 05/10/2025 7:01 AM CDT Inhaled Oxygen Concentration - - Weight 81.6 kg (180 lb) 05/10/2025 5:42 AM CDT Height 167.6 cm (5' 6 ) 05/10/2025 5:42 AM CDT Body Mass Index 29.05 05/10/2025 5:42 AM CDT Plan of Treatment Health Maintenance Due Date Last Done Comments CHLAMYDIA SCREENING (ANNUAL) 11-24 YEARS 2015 HPV VACCINES (1 - Male 3-dose series) 2019 DTAP/TDAP/TD VACCINES (1 - Tdap) 2023 HEPATITIS B VACCINES (1 of 3 - 19+ 3-dose series) 10/08 INFLUENZA VACCINE (#1) 2025 Insurance [employer] (INTERNAL) [facility]
--- OUTSIDE RECORDS SUMMARY | 2025-05-28 12:09 | XMS_ITS | Clinical Summary ---
Author Organization [facility] Address [address] [place] [address] Care Team Providers Care Academic Specialist Name Role Phone Unavailable Primary Care Provider [...] 3 - 19 + 3-dose series) 2023 [id number] (2 - 2023- season) 2024 021 Alcohol and Drug Screen 10/08/2024 Depression Annual Screen 10/08/2024 Imm-Influenza (#1) 2025 08/05/2014, 1 , 08/01/2012 Imm-DTaP/Tdap/Td (2 - Td or Tdap) 06/22/2026 016 Imm-HPV Completed 02/15/2017, 06/22/2016 Imm-Hepatitis A Completed 07/26/2017, 06/22/2016
--- OUTSIDE RECORDS SUMMARY | 2025-05-28 12:09 | XMS_ITS | Encounter Summary ---
Author Organization [facility] Address [address] [place] [address] Care Team Providers Care Technology Sales Specialist Name Role Phone Unavailable Primary Care Provider Unavailabl e Encounter Details Date Type Department Care Team (Late st Contact Info) Description 05/26/2025 External Device Data [facility] Provider, Abstract NO ADDRESS ON FILE Social History Tobacco Use Types Packs/Day Years [...] as of this encounter Plan of Treatment Not on file documented as of this encounter Visit Diagnoses Not on filedocumented in this encounter
[2025-05-28 12:12] VITALS: BP 136/77; PULSE 80; RESP 17; TEMP 36.7; O2SAT 98; BMI 29.0
--- NOTE | 2025-05-28 14:38 | W.ED.BACK ---
HPI - Back Pain/Injury General: Chief Complaint: Back Pain/Injury Stated Complaint: all over back pain and neck pain Time Seen by Provider: 05/28/25 13:53 Source: patient Mode of arrival: ambulatory Limitations: no limitations History of Present Illness: Patient is a 19-year-old male who presents the emergency department planing of chronic back and neck pain for years. He states he had a fall in 2022 and hurt his back, had x-ray at that time that was negative and has dealt with chronic pain since. He has never followed up with primary care for this as he states he does not have insurance. He does not report any new trauma, just states that pain has persisted so he wanted to get checked out. States that it is worse when he stands up and with any range of motion of the back, and is primarily to the thoracic region. He has no red flag symptoms to report such as any loss of bowel or bladder function, saddle anesthesia, peripheral numbness or weakness, history of IV drug use, history of cancer, or history of chronic steroid use. No shortness of breath, states that occasionally he will take Motrin. 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 No other concerning symptoms at this time. MD elicited complaint: back pain Pertinent past history: prior back pain Onset (ago): year(s) Timing: constant Severity: moderate Similar Symptoms Previously: Yes Location: thoracic spine Radiation: neck Exacerbating factors: movement Associated symptoms: Deny abdominal pain, difficulty walking, fecal incontinence, fever(s) or syncope Treatments prior to arrival: NSAIDS Work related injury: No Related Data Previous Rx's ?Medication ?Instructions ?Recorded tramadol 50 mg tablet 50 mg PO Q6H PRN pain #8 tabs 05/01/25 cyclobenzaprine 5 mg tablet 5 mg PO Q8H #10 tabs 05/28/25 ketorolac 10 mg tablet 10 mg PO Q8H PRN pain #15 tabs 05/28/25 Allergies Allergy/AdvReac Type Severity Reaction Status Date / Time No Known Allergies Allergy Verified 04/30/25 08:43 Review of Systems General: Reports: 10 or more systems reviewed and unremarkable except in HPI and below Const: Reports: other (denies trauma); Denies: fever(s), change in weight or night sweats Card: Denies: chest pain, lightheadedness or syncope Resp: Denies: dyspnea GI: Denies: abdominal pain or fecal incontinence : Denies: urinary incontinence Musc: Reports: neck pain and back pain; Denies: extremity pain Skin/Breast: Denies: rash or skin pain Neuro: Denies: headache(s), numbness in extremities, weakness in extremities, sensory changes, lack of coordination, difficulty walking, frequent falls or involuntary movements PFSH ED PFSH: Social History Smoking and tobacco/nicotine status: unknown if used tobacco/nicotine Physical Exam Const: COMMON NORMALS: no acute distress, patient oriented x3, no limitations, healthy appearing and alert Resp: COMMON NORMALS: normal respiratory effort, No retractions, No use of accessory muscles and clear to auscultation bilaterally AUSCULTATION: clear to auscultation bilaterally Cardio: COMMON NORMALS: regular rate, regular rhythm, S1 normal heart sound present and S2 normal heart sound present RATE: regular rate RHYTHM: regular rhythm HEART SOUNDS: S1 normal heart sound present and S2 normal heart sound present Back/Pelvis: OTHER: Normal visual examination. Reproducible spinous process tenderness to thoracic and lumbar spine with no step-off deformity. Visual examination shows no signs of trauma or deformity. Full range of motion, though reports pain primarily with flexion and extension at the back. Extremity: COMMON NORMALS: normal to inspection and full ROM Neuro: COMMON NORMALS: patient oriented x3, moves all extremities, no focal motor deficits, no sensory deficits noted, deep tendon reflexes 2+ bilaterally and gait normal SENSORIUM/ORIENTATION: Yes alert OTHER: L3, L4, L5, and S1 nerve sensations intact. Normal knee jerk and ankle jerk reflexes. Skin: COMMON NORMALS: no rashes or lesions noted GENERAL SKIN EXAM: no rashes or lesions noted Course Vital Signs: Vital signs: Vital Signs Temperature 98.0 F 05/28/25 12:12 Pulse Rate 80 05/28/25 12:12 Respiratory Rate 17 05/28/25 12:12 Blood Pressure 136/77 05/28/25 12:12 Pulse Oximetry 98 05/28/25 12:12 Oxygen Delivery Me thod Room Air 05/28/25 12:12 MDM - Back Pain/Injury Medical Decision Making Patient has had chronic back pain for multiple years, no new injury or specific reason he presented today for evaluation of that has persisted this long. He has never seen primary care for this as he does not have a primary care provider and states he has had issues seeing one due to insurance purposes. Occasionally takes Motrin, no other conservative measures have been taken other than seeing a chiropractor once last winter which she states kind of helped. He had no red flag symptoms with history or on exam, no new or recent trauma that would warrant any imaging at this time as I do not suspect any acute process. I will set him up with PCP for further long-term management, in the meantime we will try couple of muscle relaxers and Toradol to treat his pain at home and I educated him on conservative treatment of this chronic back pain at home as well. He is also given strict return precautions and signs and symptoms to watch for that would warrant a return, and is given a work note. No radiology studies performed this visit Discharge Plan Discharge Patient Disposition: Home Clinical Impression: Chronic back pain Condition: Stable Prescriptions: New ketorolac 10 mg tablet 10 mg PO Q8H PRN (Reason: pain) Qty: 15 0RF cyclobenzaprine 5 mg tablet 5 mg PO Q8H Qty: 10 0RF Discontinued ketorolac 10 mg tablet 10 mg PO TID PRN (Reason: pain) Qty: 10 0RF No Action tramadol 50 mg tablet 50 mg PO Q6H PRN (Reason: pain) Qty: 8 0RF Discharge Orders: Discharge ED (Routine); Ordered 05/28/25 Ordered By: Luciano Farmer Patient Instructions: Patient Portal & Jonny Instructions Activity Restrictions/Additional Instructions: Chronic Back Pain Discharge Diagnosis: Chronic nonspecific low back pain, no red flag symptoms. Medications: - Ketorolac (Toradol): Prescribe for short-term use only (maximum 5 days), as per standard dosing (typically 10 mg orally every 4-6 hours as needed, not to exceed 40 mg/day). Advise to take with food to minimize gastrointestinal side effects. Contraindicated in patients with history of peptic ulcer disease, GI bleeding, renal impairment, or NSAID allergy. - Cyclobenzaprine: Prescribe for short-term adjunctive use (e.g., 5-10 mg orally at bedtime, up to 2-3 times daily as needed for muscle spasm, not to exceed 2-3 weeks). [employer] regarding sedation and avoid concurrent use with other OFFICE TECHNICIAN depressants. Use with caution in patients with history of arrhythmia, glaucoma, or urinary retention. Nonpharmacologic and Conservative Measures: - Education and Reassurance: Emphasize the favorable prognosis of chronic nonspecific low back pain and the absence of serious underlying disease. Encourage maintenance of normal activities as tolerated, even if mild pain persists. - Activity: Advise against bed rest. Encourage regular, low-impact physical activity (e.g., walking, gentle stretching). Gradual return to usual activities is recommended. - Exercise Therapy: Recommend initiation of a structured exercise program, such as core strengthening, stretching, yoga, or Pilates, tailored to patient preference and ability. Supervised physical therapy (including Wes method or similar) may be considered if pain persists or function is limited. - Heat Therapy: Application of a heating pad to the lower back may provide symptomatic relief. - Behavioral Strategies: If pain is associated with significant distress or functional limitation, consider referral for cognitive-behavioral therapy or other psychological interventions. - Other Modalities: Spinal manipulation, massage, and acupuncture may be considered as adjuncts, but evidence for long-term benefit is limited and should be guided by patient preference and access. Return Precautions: - Advise immediate return for any of the following: - New or worsening neurological symptoms (e.g., leg weakness, numbness, loss of bowel or bladder control) - Signs of infection (fever, chills, unexplained weight loss) - Severe, unremitting pain not responsive to medication - New onset of saddle anesthesia or difficulty initiating urination. Follow-Up: - Patient will be established with a primary care provider for ongoing management and further evaluation. - If pain persists beyond 2 months despite conservative therapy, or if function declines, consider referral to a specialist (e.g., physiatry, pain management, or spine surgery) for further assessment and possible supervised exercise or behavioral therapy. - Routine imaging is not indicated unless red flag symptoms develop or there is no improvement with conservative management. Additional Notes: - [employer] on the risks of prolonged NSAID and muscle relaxant use, including GI, renal, and OFFICE TECHNICIAN side effects. - Encourage self-management and active participation in recovery. - Screen for psychosocial factors that may impact recovery (e.g., depression, anxiety, work-related stress). Summary: The mainstay of management is education, maintenance of activity, and exercise, with short-term pharmacologic therapy as an adjunct. Ongoing follow-up is essential to monitor progress and address any new symptoms or barriers to recovery. Stand Alone Forms: Work/School Release Print Language: Lithuanian Coding Level of Care Code ED Cota for Kennedy Rivero
== END 2025-05-28 14:41 | disposition home or self-care (01) ==
PROVIDERS: Emergency Provider Physician Assistant
DX: M54.89 Other dorsalgia (principal); G89.29 Other chronic pain
CPT/HCPCS: 99283; J9999

== ENCOUNTER 2025-09-08 22:54 | Emergency (ER) | payer OTHER, SELFPAY ==
--- OUTSIDE RECORDS SUMMARY | 2025-09-08 23:00 | XMS_ITS | Data Portability ---
Author Organization [facility] - Main Office Address [address] [place] [address] Assessment No assessment recorded. Plan of Treatment Reminders Order Date Submit Date Provider Last Modified By Organization Details Last Modified Time Details Appointments None recorded. Lab SARS CoV 2 RNA (COVID-19), QL, logistics supply officer-PCR, respiratory specimen 2022 023 [email or web address] In-Office Order, Internal Use Only DO Not Attach Compendium DO Not Attach Compendium, Do Not Delete/merge, [id number] 19:16:42 strep group A, DNA, swab 2022 023 [email or web address] [facility], [address], [place], [address], 19:16:42 Referral None recorded. Procedures None recorded. Surgeries None recorded. Imaging None recorded. Medication Orders amoxicillin 875 mg-potassiu m clavulanate 125 mg tablet 2022 023 [id number], [address] [place], [place], [id number], 3 19:16:51 Patient TargetsNo targets recorded. Patient Instructions Encounter Date Encounter Id Patient Instructions Last Modified By Organization Details Last Modified Time 04/17/2023 [id number] sore throat in teens: care instructions [facility] Not available 04/17/2023 19:16:42 Saline nasal washes twice a day. Take zyrtec, claritin, OR rahul D daily x 6 weeks. Increase fluids. If prescribed medications, take completely. May gargle with warm salt water for comfort. Tylenol and Ibuprofen as needed for discomfort. Drink warm liquids to soothe throat. [email or web address] Not available 04/17/2023 19:16:49 Reason for Referral None Reported. Results Created Date Observation Date Name Description Value Unit Range Abnormal Flag Note LastModifiedBy Organization Detail LastModifiedTime 04/17/2004/17/2023 SARS CoV 2 RNA (COVI D-19) , QL, logistics supply officer-P CR, respi rator y speci men sars-cov-2 NEGATI VE normal Not Available In-Office Order Internal Use Only DO Not Attach Compendium DO Not Attach Compendium, Do Not Delete/merge, [id number] 04/17/2023 16:04:00 04/17/20 23 04/17/2023 strep group A, DNA, swab strep A NEGATI VE normal Not Available [place] [address], [place], [address], 04/17/2023 16:04:09 Result Notes None recorded. Problems No Known Problems Procedures Surgical History Date Name Laterality Status Provider Name and Address Organization Details Recorded Time Appendectomy completed Stephany Arredondo [facility] 04/17/2023 16:02:39 Imaging Results None recorded. Procedure Notes None recorded. Medical Equipment None Reported. Allergies No known drug allergies Medications Name Sig Start Date Stop Date Status Note LastModified by Organization Details LastModified Time hydrocodone 5 mg-acetaminop hen 325 mg tablet TAKE 1 TO 2 TABLET BY MOUTH EVERY 6 HOURS NEEDED FOR PAIN 04/17 completed Not Available Not Available Not Available amoxicillin 875 mg-potassium clavulanate 125 mg tablet Take 1 tablet every 12 hours by oral route for 10 days. 2022 active Not Available Not Available Not Avai lable Vitals Date Recorded Body weight Body mass index (BMI) [Percentile] Per age and sex Body mass index (BMI) Body height Body temperature Oxygen saturation Heart rate Respiratory rate Systolic And Diastolic Provider Name and Address Organization Details Last Updated DateTime 3 87324 g 86 % 26.1 kg/m2 165.1 cm 100.6 [degF] 97 % 95 /min 20 /min 121/71 mm[Hg] Stephany Arredondo [place] - [facility] 16:01:40 Social History Question Answer Notes LastModified by Organizat ion Details LastModified Time Tobacco Smoking Status Current Every Day Smoker Stephany pike, [place] - [facility] 04/17/2023 16:02:21 In The 14 Days Before Symptom Onset, Have You Had Close Contact With A Laboratory-confirm ed COVID-19 While That Case Was Ill? No Information n ot available 04/17/2023 In The 14 Days Before Symptom Onset, Have You Had Close Contact With A Person Who Is Under Investigation For COVID-19 While That Person Was Ill? No Information not available 04/17/2023 Have You Been To An Area Known To Be High Risk For COVID-19? No Information not available 04/17/2023 Have You Received Your Flu Vaccine For This Season? No Information not available 04/17/2023 Social History Last Reviewed 04/17/2023 Information not available 04/17/2023 Second Hand Smoke Exposure No Information not available 04/17/2023 What Was The Date Of Your Most Recent Tobacco Screening? 04/17/2023 Information not available 04/17/2023 How Much Tobacco Do You Smoke? No Information not available 04/17/2023 Sex: Unknown Functional Status Question Answer Note LastModified by Organizat ion Details LastModified Time Do you use any illicit or recreational drugs? No Information not available 04/17/2023 Do you or have you ever used any other forms of tobacco or nicotine? Yes Information not available 04/17/2023 What is your level of alcohol consumption? None Information not available 04/17/2023 Do you or have you ever used smokeless tobacco? Never used smokeless tobacco Information not available 04/17/2023 Do you or have you ever used e-cigarettes or vape? Current user of electronic cigarettes Information not available 04/17/2023 Mental Status None recorded. Family History Nothing Reported. Medical History No medical history recorded. Past Encounters Encounter ID Performer Location Encounter Start Date Encounter Closed Date Diagnosis/Indication Diagnosis SNOMED-CT Code Diagnosis ICD10 Code Diagnosis IMO Codes Diagnosis Note [id number] ALEXEY Lubin [place] - Main Office [address] [place] [address] 04/17/2023 15:41:02 04/17/2023 19:19:12 Risk of exposure to communicable disease 847622068 Z11.52 Z20.822 Encounter for screening for COVID-19, reported for people who are asymptomat ic Z11.52 Contact with and (suspected ) exposure to COVID-19 Z20.822 Pain in throat 413708266 R07.0 Acute sinusitis 97804086 J01.90 Health Concerns Section Related Observation LastModified by Organization Detai ls LastModified Time None Recorded Concern Status LastModified by Organization Details LastModified Time None Recorded Advance Directives Directive None Recorded Payers Insurance Date Sequence Insurance Name Policy Number Policy Kirk Covered Member ID Kirk Member ID Guarantor Name 04/18/2023 1 [place] ([place] [id number] Chris Martinez [id number] Chris Martinez Notes Date Note Type Note Provider Name and Address Organization Details Recorded Time 04/17/2023 text/html ROS as noted in the HPI Sore throat, headache, fever, body aches, nasal congestion since yesterday. No exposure to covid. Not immunized for covid. ALEXEY Lubin [address] [place], [address], [facility] 04/17/2023 19:17:26
--- OUTSIDE RECORDS SUMMARY | 2025-09-08 23:00 | XMS_ITS | Clinical Summary ---
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 Role Phone Patient, None Per Primary Care Provider Unavaila ble Source Comments This disclosure is being made pursuant to the [employer] program and maynot contain all information available regarding this patient.[facility] Allergies No known active allergies Medications HYDROcodone-andrae [...] Comments Blood Pressure 123/76 11/20/2024 9:33 PM RETAIL ACCOUNT MANAGER Pulse 90 11/20/2024 9:33 PM RETAIL ACCOUNT MANAGER Temperature 37.6 C (99.6 F) 11/20/2024 9:33 PM RETAIL ACCOUNT MANAGER Respiratory Rate 18 11/20/2024 9:33 PM RETAIL ACCOUNT MANAGER Oxygen Saturation 98% 11/20/2024 9:33 PM RETAIL ACCOUNT MANAGER Inhaled Oxygen Concentration - - Weight 83.9 kg (185 lb) 11/20/2024 9:33 PM RETAIL ACCOUNT MANAGER Height 167.6 cm (5' 6 ) 11/20/2024 9:33 PM RETAIL ACCOUNT MANAGER Body Mass Index 29.86 11/20/2024 9:33 PM RETAIL ACCOUNT MANAGER Plan of Treatment Health Maintenance Due Date [...] - Tdap) 2023 COVID-19 Vaccine (2 - 2024-2 6 season) 2025 05/26/2021 Influenza Vaccine (#1) 2025 4, 07/29/2013, [...] patient's age to complete this topic Insurance [facility] MEDICAID [address] Care Teams Nuclear Plant Equipment Operator Relationship Specialty Start Date End Date Patient, None Per PCP - General 03/23/17
[2025-09-08 23:01] VITALS: BP 138/95; PULSE 71; RESP 18; TEMP 36.7; O2SAT 98
--- NOTE | 2025-09-08 23:11 | W.ED.ABDPA2 ---
HPI - Abdominal Pain General: Chief Complaint: Abdominal Pain Stated Complaint: Possible food poisoning, Blurry Vision Time Seen by Provider: 09/08/25 22:57 History of Present Illness: 19-year-old male previous history of appendectomy remotely presenting to the emergency department with acute onset of abdominal pain cramping 10 out of 10 with associated watery diarrhea nausea without vomiting after having a red sauce that tasted funny at [facility], no alcohol consumption, no chronic medical issues, reports some transient blurry vision when symptoms started that has resolved, denies fever, was in his usual state of health prior to dinner. No hematuria dysuria urgency or frequency of urination Related Data Previous Rx's ?Medication ?Instructions ?Recorded amoxicillin 875 mg-potassium 1 tab PO BID 10 days #20 tabs 08/29/25 clavulanate 125 mg tablet famotidine 20 mg tablet (Pepcid) 20 mg PO BID 5 days #10 tabs 09/09/25 ibuprofen 600 mg tablet 600 mg PO Q6H PRN pain 4 days #14 09/09/25 tabs ondansetron 8 mg disintegrating 8 mg PO Q8H PRN nausea and 09/09/25 tablet vomiting 5 days #10 tabs Allergies Allergy/AdvReac Type Severity Reaction Status Date / Time No Known Allergies Allergy Verified 08/29/25 13:20 PFSH ED PFSH: Social History Smoking and tobacco/nicotine status: unknown if used tobacco/nicotine Physical Exam Narrative: EXAM NARRATIVE: Gen: A&Ox4, no acute distress, nontoxic appearing HEENT: Normocephalic, atraumatic, no scleral icterus, external ears normal, moist mucous membranes Neck: Supple, full range of motion, no observable masses Lungs: No Respiratory distress, Lungs clear to auscultation bilaterally no rales, rhonchi, wheezing CV: Regular rate and rhythm, no murmur, no pitting edema to lower extremities bilaterally Abdomen: Soft, nondistended, tender to palpation to the periumbilical region, no right upper quadrant tenderness, negative Márquez sign, no CVA tenderness bilaterally MSK: No joint swelling, FROM all 4 extremities Skin: No rashes, petechiae, lesions. Normal color per patient. Neuro: Alert and oriented, no slurred speech, sensation and strength grossly intact all 4 extremities Psych: Appropriate for situation. Course Reevaluation(s): Reevaluation #1: Patient reassessed at this time, symptoms significantly improved, tenderness to the abdomen improved on repeat exam, vital signs stable, blood work without leukocytosis, normal creatinine, minimal ALT elevation with otherwise normal bilirubin and AST, consistent with nonspecific gastroenteritis, discharged with supportive care, return precautions discussed prior to discharge for worsening pain abnormal bleeding or fever. Time: 00:00 Vital Signs: Vital signs: Vital Signs Temperature 98.1 F 09/08/25 23: Pulse Rate 71 09/08/25 23: Respiratory Rate 18 09/08/25 23: Blood Pressure 138/95 09/08/25 23: Pulse Oximetry 98 09/08/25 23: Oxygen Delivery Me thod Room Air 09/08/25 23:01 MDM - Abdominal Pain Medical Decision Making Generally healthy 19-year-old male with a remote past surgical history of appendectomy presenting to the emergency department with abdominal pain with associated diarrhea and nausea after eating a possible suspicious food intake at [facility], on arrival to the ER patient is well-appearing but is endorsing 10 of 10 abdominal pain, he does have some periumbilical tenderness to palpation without rebound guarding or rigidity, he has no Márquez sign, he has no CVA tenderness or associated urinary symptoms, I suspect infectious versus inflammatory gastroenteritis as the most likely diagnosis, less likely pancreatitis, no concern for cholecystitis at this time, no concern for kidney stone or pyelonephritis, plan for supportive care with antiemetics, pain control, IV fluids, labs, reassess for disposition. At this time based on his past surgical history of appendectomy, no symptoms to suggest bowel obstruction and physical exam reassuring against cholecystitis I do not think advanced imaging is required unless symptoms recalcitrant to treatment. Lab Data Labs with no leukocytosis, minimal ALT elevation 57 nonspecific normal AST and total bilirubin, normal kidney function 09/08/25 23:22 09/08/25 23: Labs/Radiology: Laboratory Results WBC 11.76 10^3/uL (4.5-13.0) 09/08/25 23: RBC 6.15 10^6/uL (3.85-5.65) H 09/08/25 23:22 Hgb 16.60 g/dL (13.2-15.6) H 09/08/25 23:22 Hct 49.7 % (37-53) 09/08/25 23:22 MCV 80.8 fl (82-101) L 09/08/25 23:22 MCH 27.0 pg (27-33) 09/08/25 23:22 MCHC 33.4 g/dL (30-55) 09/08/25 23:22 RDW 13.0 % (12.1-15.1) 09/08/25 23:22 Plt Count 337 10^3/cmm (157-399) 09/08/25 23:22 MPV 9.5 fL (7.4-10.4) 09/08/25 23:22 Neut % (Auto) 72.8 % 09/08/25 23:22 Lymph % (Auto) 18.7 % 09/08/25 23:22 [place] % (Auto) 6.0 % 09/08/25 23:22 Eos % (Auto) 1.3 % 09/08/25 23:22 Baso % (Auto) 0.6 % 09/08/25 23:22 Neut # (Auto) 8.57 10^3/uL (1.8-8.0) H 09/08/25 23:22 Lymph # (Auto) 2.2 10^3/uL (1.5-6.5) 09/08/25 23:22 [place] # (Auto) 0.7 10^3/uL (0.2-0.9) 09/08/25 23:22 Eos # (Auto) 0.2 10^3/uL (0.0-0.8) 09/08/25 23:22 Baso # (Auto) 0.1 10^3/uL (0.0-0.1) 09/08/25 23:22 Nucleated RBC % (auto) 0 % 09/08/25 23: Nucleated RBCs # 0.0 /100WBC 09/08/25 23:22 Sodium 140 mmol/L (136-145) 09/08/25 23:22 Potassium 3.7 mmol/L (3.5-5.1) 09/08/25 23:22 Chloride 99 mmol/L (98-107) 09/08/25 23:22 Carbon Dioxide 29 mmol/L (22-29) 09/08/25 23:22 Anion Gap 15.7 (5-19) 09/08/25 23:22 BUN 10 mg/dL (6-20) 09/08/25 23:22 Creatinine 0.8 mg/dL (0.7-1.2) 09/08/25 23:22 GFR Calculation 123.2 mL/min (90-130) 09/08/25 23:22 Glucose 96 mg/dL (65-115) 09/08/25 23:22 Calculated Osmolality 289 mOsm/kg (285-295) 09/08/25 23:22 Calcium 10.3 mg/dL (8.5-10.5) 09/08/25 23:22 Total Bilirubin 0.4 mg/dL (0.15-1.2) 09/08/25 23:22 AST 31 U/L (0-40) 09/08/25 23:22 ALT 57 U/L (0-41) H 09/08/25 23:22 Alkaline Phosphatase 133 U/L (40-130) H 09/08/25 23:22 Total Protein 8.4 g/dL (6.6-8.7) 09/08/25 23:22 Albumin 5.2 g/dL (3.5-5.2) 09/08/25 23:22 Globulin 3.2 g/dL (1.3-4.6) 09/08/25 23:22 Lipase 20 U/L (13-60) 09/08/25 23:22 No radiology studies performed this visit Discharge Plan Discharge Patient Disposition: Home Clinical Impression: Gastroenteritis Condition: Stable Prescriptions: New famotidine [Pepcid] 20 mg tablet 20 mg PO BID 5 Days Qty: 10 0RF ondansetron 8 mg tablet,disintegrating 8 mg PO Q8H PRN (Reason: nausea and vomiting) 5 Days Qty: 10 0RF ibuprofen 600 mg tablet 600 mg PO Q6H PRN (Reason: pain) 4 Days Qty: 14 0RF No Action amoxicillin-pot clavulanate 875-125 mg tablet 1 tab PO BID 10 Days Qty: 20 0RF Discharge Orders: Discharge ED (Routine); Ordered 09/09/25 Ordered By: Silver Erwin Patient Instructions: Abdominal Pain (ED), Patient Portal & Jonny Instructions, Gastroenteritis (ED) Print Language: Tunisian Coding Level of Care Code ED Graphics Software Engineer for Chg Fwd
[2025-09-08] MEDS: ondansetron 2 mg/ML SDV 2 mL 4 MG IVP (23:18)
[2025-09-08] MEDS: alum-mag-hydroxide-sime 30 mL UDC PO (23:22)
[2025-09-08 23:30] LABS: Hematocrit 49.7 % (37-53); Hemoglobin 16.60 g/dL (13.2-15.6); Mean Corpuscular HGB Conc 33.4 g/dL (30-55); Mean Corpuscular Hemoglobin 27.0 pg (27-33); Mean Corpuscular Volume 80.8 fl (82-101); Nucleated Red Blood Cells % 0 %; Platelet Count 337 10^3/cmm (157-399); Red Blood Count 6.15 10^6/uL (3.85-5.65); White Blood Count 11.76 10^3/uL (4.5-13.0)
[2025-09-08 23:55] LABS: Alanine Aminotransferase 57 U/L (0-41); Albumin Level 5.2 g/dL (3.5-5.2); Alkaline Phosphatase 133 U/L (40-130); Anion Gap 15.7 (5-19); Aspartate Amino Transferase 31 U/L (0-40); Blood Urea Nitrogen 10 mg/dL (6-20); Calcium 10.3 mg/dL (8.5-10.5); Carbon Dioxide 29 mmol/L (22-29); Chloride 99 mmol/L (98-107); Globulin 3.2 g/dL (1.3-4.6); Glucose 96 mg/dL (65-115); Lipase 20 U/L (13-60); Osmolality Calculated 289 mOsm/kg (285-295); Potassium 3.7 mmol/L (3.5-5.1); Sodium 140 mmol/L (136-145); Total Protein 8.4 g/dL (6.6-8.7)
[2025-09-09 00:31] LABS: Glucose Urine UA Negative (Normal); Nitrate Urine Negative (Negative); Specific Gravity, Urine 1.030 (1.005-1.030)
[2025-09-09 01:00] VITALS: BP 120/70; PULSE 82; RESP 14; O2SAT 97
== END 2025-09-09 01:03 | disposition home or self-care (01) ==
PROVIDERS: Emergency Provider Student in an Organized Health Care Education/Training Program
DX: K52.9 Noninfective gastroenteritis and colitis, unspecified (principal)
CPT/HCPCS: 36415; 80053; 81001; 83690; 85025; 96361; 96374; 96375; 99284; J1885; J2405; J3490; J7030; J9999